=== PATIENT | female | born 1985 | race Caucasian/White ===

== ENCOUNTER 2019-08-17 22:05 | Emergency (ER) | payer OTHER ==
[~2019-08-17] VITALS: Ht 154.9 cm; Wt 61.2 kg
[2019-08-17 22:33] VITALS: BP_SYST 138
--- NOTE | 2019-08-18 00:15 | NUR ---
Patient left without being seen. No further treatment provided. MAGALI blair
--- NOTE | 2019-08-18 00:15 | NUR ---
Pt did not wish to wait for evaluation
== END 2019-08-18 00:15 | disposition left against medical advice (07) ==
LOC: SED 22:05
DX: G43.901 Migraine, unspecified, not intractable, with status migrainosus (principal); Z53.21 Procedure and treatment not carried out due to patient leaving prior to being seen by health care provider

== ENCOUNTER 2020-01-12 20:46 | Emergency (ER) | payer OTHER ==
[~2020-01-12] VITALS: Ht 154.9 cm; Wt 61.2 kg
[2020-01-12 21:06] VITALS: BP_SYST 110
--- NOTE | 2020-01-12 21:36 | NUR ---
Patient to ER bed 03 to gown for evaluation. Side rails up. Report given to [facility]
--- NOTE | 2020-01-12 22:10 | NUR ---
ER Dr. CUMMINGS at bedside examining patient.
[2020-01-12] MEDS ORDERED: ONDANSETRON HCL 4 MG/2 ML VIAL IVP ONE (22:15)
[2020-01-12] MEDS ORDERED: MORPHINE 2 MG/ML INJ. SYRINGE IVP ONE (22:15)
[2020-01-12] MEDS ORDERED: NACL 0.9% 1,000 ML IV ONE (22:15)
--- NOTE | 2020-01-12 22:15 | NUR ---
pt c/o of epigastric pain 8/10 sharp, radiating to right side and back. pt reports she ate pancakes last night and immediately after the pain began. pt has been nauseous and throwing up since 2am. pt upper abdomen appears to be bloated and is tender to the touch.
--- NOTE | 2020-01-12 22:55 | NUR ---
# 22 gauge angiocath placed to left hand. Use of asceptic technique. Opsite placed over site. Blood return noted. Blood, blood cultures, lactic for lab drawn from site. Flushed with 10 cc of normal saline. No evidence of infiltration noted. Patient tolerated well.
[2020-01-12 23:37] LABS: BASOPHILS # (AUTO) 0.1 K/uL (0.0-0.2); BASOPHILS % (AUTO) 1.3 % (0.0-2.0); EOSINOPHILS # (AUTO) 0.3 K/uL (0.0-0.4); EOSINOPHILS % (AUTO) 5.9 % (0.0-4.0); HEMATOCRIT 38.3 % (36-48); LYMPHOCYTES # (AUTO) 2.5 K/uL (1.0-5.5); MEAN CORPUSCULAR HEMOGLOBIN 34 pg (27-31); MEAN CORPUSCULAR HGB CONC 34 % (32-36); MEAN CORPUSCULAR VOLUME 101 fL (79.0-98.0); MONOCYTES # (AUTO) 0.6 K/uL (0.0-1.0); MONOCYTES % (AUTO) 11.3 % (1.7-9.3); NEUTROPHILS # (AUTO) 1.9 K/uL (1.8-7.7); NEUTROPHILS % (AUTO) 35.5 % (40.0-70.0); PLATELET COUNT (AUTO) 227 K/uL (130-430); RED CELL DISTRIBUTION WIDTH 12.9 % (9.0-15.0); WHITE BLOOD COUNT (AUTO) 5.4 K/uL (4.8-10.8)
[2020-01-12 23:42] LABS: BILIRUBIN,URINE NEGATIVE (NEGATIVE); BLOOD, URINE NEGATIVE (NEGATIVE); CLARITY/URINE CLEAR (CLEAR); COLOR,URINE YELLOW (YELLOW); GLUCOSE,URINE NEGATIVE (NEGATIVE); KETONES,URINE NEGATIVE (NEGATIVE); LEUKOCYTE ESTERASE ,URINE NEGATIVE (NEGATIVE); NITRITE, URINE NEGATIVE (NEGATIVE); PROTEIN URINE NEGATIVE (NEGATIVE)
--- NOTE | 2020-01-12 23:44 | NUR ---
pt states the pain initially went away but just came back. 04/03.
[2020-01-12 23:48] LABS: CALCIUM 8.8 mg/dL (8.4-11.0); CREATININE 0.78 mg/dL (0.55-1.30)
[2020-01-12 23:52] LABS: INR 0.9 (0.8-1.2); PROTHROMBIN TIME 9.2 SECS (9.5-12.5)
[2020-01-12 23:54] LABS: ALBUMIN 3.6 g/dL (3.4-4.8); TOTAL BILIRUBIN 0.3 mg/dL (0.0-1.0)
[2020-01-13 00:32] VITALS: BP_SYST 110
--- NOTE | 2020-01-13 00:32 | NUR ---
Patient given written and verbal discharge instructions and verbalizes understanding. ER MD discussed with patient the results and treatment provided. Patient in stable condition. ID arm band removed. IV catheter removed intact and dressing applied, no active bleeding. Rx of miralax, motrin, tramadol, mineral oil given. Patient educated on pain management and to follow up with PMD. Pain Scale 3/10. Opportunity for questions provided and answered. Medication side effect fact sheet provided.
== END 2020-01-13 00:32 | disposition home or self-care (01) ==
LOC: SED 20:46
DX: K59.00 Constipation, unspecified (principal); R11.2 Nausea with vomiting, unspecified; Z88.0 Allergy status to penicillin; Z79.899 Other long term (current) drug therapy
CPT/HCPCS: 36415; 71045; 74176; 80053; 81003; 81025; 83605; 85025; 85610; 85730; 87040; 87086; 96361; 96374; 96375; 99285; J2270; J2405; J7030